=== PATIENT | male | born 1960 | race Caucasian/White ===

== ENCOUNTER 2017-10-06 06:19 | Outpatient (CLI) | payer OTHER ==
--- NOTE | 2017-10-06 10:40 | Cat Scan Report ---
CT ABDOMEN AND PELVIS WITH CONTRAST INDICATION: Polypoid colonic mass. COMPARISON: None similar at this institution. FINDINGS: Abdomen and pelvis CT performed following oral contrast and intravenous administration of 100 cc of Omnipaque 300. LUNG BASES: Mild nonspecific distal esophageal wall prominence/thickening, not excluded for gastroesophageal reflux and/or hiatal hernia, amongst others. ABDOMEN: Left hepatic lobe tip extends into the left upper quadrant approaching the spleen. Otherwise unremarkable liver, spleen, gallbladder, pancreas, adrenals, nonaneurysmal abdominal aorta, IVC and kidneys within normal limits. An approximately 1 cm left renal cyst posteriorly on axial image 45, series 2. No ascites or size significant adenopathy. Few small, subcentimeter right lower quadrant mesenteric lymph nodes. Opacified GI tract nonobstructive. Normal appendix. Mild stool throughout colon, partly admixed with contrast. Small fat-containing umbilical hernia with a transverse neck of approximately 1 cm. PELVIS: Unremarkable urinary bladder and the rectum. Mild sigmoid diverticulosis without acute complication. Few pelvic phleboliths. Slightly prominent prostate may be correlated for clinically and with PSA. Mild degenerative spurring throughout imaged spine. Few lower thoracic and upper lumbar endplate irregularities/Schmorl's nodes as well. Mild lower thoracic spine vacuum disc phenomenon. Bilateral SI joint degenerative spurring with joint space obliteration on the right. Bilateral hip degenerative changes/spurring as well. CONCLUSION: No acute CT abnormality with various incidental findings as diverticulosis, small left renal cyst and various bony degenerative changes, amongst others, as detailed above. Please correlate. Thank you for the opportunity to participate in this patient's care.
== END 2017-10-06 06:20 | disposition home or self-care (01) ==
LOC: CT 06:19
PROVIDERS: ATTEND Internal Medicine
DX: K57.30 Diverticulosis of large intestine without perforation or abscess without bleeding (principal); K42.9 Umbilical hernia without obstruction or gangrene; M16.0 Bilateral primary osteoarthritis of hip; M47.899 Other spondylosis, site unspecified; N28.1 Cyst of kidney, acquired
CPT/HCPCS: 74177; Q9967